=== PATIENT | female | born 1985 | race Caucasian/White ===

== ENCOUNTER 2018-06-11 12:38 | Emergency (ER) | payer BC, OTHER ==
[~2018-06-11] VITALS: Ht 165.1 cm; Wt 59.3 kg
[2018-06-11 15:43] VITALS: BP 104/64
== END 2018-06-11 15:47 | disposition home or self-care (01) ==
LOC: M ED 12:38
DX: S09.90XA Unspecified injury of head, initial encounter (principal); W22.8XXA Striking against or struck by other objects, initial encounter; Y92.89 Other specified places as the place of occurrence of the external cause; Y99.0 Civilian activity done for income or pay

== ENCOUNTER 2022-08-15 09:03 | Emergency (ER) | payer BC, OTHER ==
[~2022-08-15] VITALS: Ht 165.1 cm; Wt 69.9 kg
[2022-08-15 10:10] LABS: BASO % 0.4 % (0.0-1.0); EOS # 0.1 10^3/uL (0.0-0.5); EOS % 1.4 % (0.0-3.0); HEMATOCRIT 41.1 % (36.0-47.0); LYMPH # 1.4 10^3/uL (1.5-5.0); LYMPH % 17.7 % (24.0-44.0); MEAN CORPUSCULAR HEMOGLOBIN 29.2 pg (27.0-33.0); MEAN CORPUSCULAR HGB CONC 34.1 g/dl (32.0-36.5); MEAN CORPUSCULAR VOLUME 85.8 fl (80.0-96.0); MONO # 0.7 10^3/uL (0.0-0.8); MONO % 9.4 % (2.0-8.0); NEUTROPHILS # 5.5 10^3/uL (1.5-8.5); NEUTROPHILS % 70.8 % (36.0-66.0); PLATELET COUNT, AUTOMATED 255 10^3/uL (150-450); RED BLOOD COUNT 4.79 10^6/uL (4.00-5.40); WHITE BLOOD COUNT 7.8 10^3/uL (4.0-10.0)
[2022-08-15] MEDS ORDERED: ONDANSETRON 4MG 2ML VIAL IV ONE (10:10)
[2022-08-15] MEDS ORDERED: KETOROLAC 30 MG/ML 1ML VIAL IV ONE (10:10)
[2022-08-15] MEDS ORDERED: NS 1,000 ML IV ONE (10:10)
[2022-08-15 10:38] LABS: LIPASE 26 U/L (12-53)
[2022-08-15 10:40] LABS: ALBUMIN 3.9 G/DL (3.2-5.2); ALKALINE PHOSPHATASE 57 U/L (46-116); ALT/SGPT < 9 U/L (7.0-40); AST/SGOT 19 U/L (<34); BILIRUBIN,DIRECT 0.2 MG/DL (<0.4); BILIRUBIN,TOTAL 0.6 MG/DL (0.3-1.2); TOTAL PROTEIN 6.9 G/DL (5.7-8.2)
[2022-08-15] MEDS ORDERED: ISOVUE-370 76% 100ML VIAL As Ordered ONE (10:40)
[2022-08-15] MEDS ORDERED: ONDA4TAB6 PO (11:38)
[2022-08-15 11:45] VITALS: BP 114/62
[2022-08-15] MEDS ORDERED: MACR100C43 PO (11:46)
== END 2022-08-15 11:53 | disposition home or self-care (01) ==
LOC: M ED 09:03
DX: R10.9 Unspecified abdominal pain (principal); R11.2 Nausea with vomiting, unspecified; N39.0 Urinary tract infection, site not specified; K42.9 Umbilical hernia without obstruction or gangrene; R59.9 Enlarged lymph nodes, unspecified
CPT/HCPCS: 74177; 80047; 80076; 81001; 83690; 84702; 85025; 87086; 96374; 96375; 99284; J1885; J2405; Q9967